=== PATIENT | male | born 1985 | race Two or more races ===

== ENCOUNTER 2021-07-29 08:05 | Emergency (ER) | payer OTHER ==
[~2021-07-29] VITALS: Ht 172.7 cm; Wt 86.2 kg
== END 2021-07-29 10:39 | disposition home or self-care (01) ==
LOC: ER 08:05
DX: T22.111A Burn of first degree of right forearm, initial encounter (principal); X16.XXXA Contact with hot heating appliances, radiators and pipes, initial encounter; Y92.89 Other specified places as the place of occurrence of the external cause

== ENCOUNTER 2021-08-15 08:00 | Outpatient (CLI) | payer OTHER | END 2021-08-15 08:30 | disposition home or self-care (01) | LOC: PPH VACUNA 08:00 | PROVIDERS: ATTEND Emergency Medicine Pediatric Emergency Medicine | DX: Z23 Encounter for immunization (principal) ==

== ENCOUNTER 2021-09-02 18:00 | Emergency (ER) | payer OTHER ==
[~2021-09-02] VITALS: Ht 177.8 cm; Wt 95.3 kg
== END 2021-09-02 20:27 | disposition home or self-care (01) ==
LOC: ER 18:00
DX: L03.011 Cellulitis of right finger (principal); X58.XXXA Exposure to other specified factors, initial encounter; Y99.0 Civilian activity done for income or pay